=== PATIENT | female | born 1955 | race Caucasian/White ===

== ENCOUNTER 2019-08-29 17:26 | Emergency (ER) | payer SELFPAY ==
[~2019-08-29] VITALS: Ht 167.6 cm; Wt 86.2 kg
--- NOTE | 2019-08-29 17:38 | NUR ---
BIBA 89 "mechanical fall in grocery store-tripped and fell down hit eye socket/R hand and left knee" PT IS AAOX4, NOT IN RESPIRATORY DISTRESS, HOOKED TO MONITOR, KEPT RESTED AND COMFORTABLE, WILL CONTINUE TO MONITOR.
--- NOTE | 2019-08-29 18:03 | NUR ---
SEEN AND EXAMINED BY SMOOTH MATTHEW
[2019-08-29] MEDS ORDERED: ACETAMINOPHEN 325 MG TABLET ONE (18:06)
[2019-08-29] MEDS: ACETAMINOPHEN 325 MG TABLET PO ONE (18:07)
--- NOTE | 2019-08-29 18:10 | NUR ---
PT IS WHEELED TO [place] VIA [employer] [facility].
--- NOTE | 2019-08-29 20:16 | NUR ---
Patient discharged to home in stable condition. Written and verbal after care instructions given. Patient verbalizes understanding of instruction.
[2019-08-29 20:17] VITALS: BP 133/71
== END 2019-08-29 20:25 | disposition home or self-care (01) ==
LOC: ER 17:29
DX: S01.111A Laceration without foreign body of right eyelid and periocular area, initial encounter (principal); S86.811A Strain of other muscle(s) and tendon(s) at lower leg level, right leg, initial encounter; S63.592A Other specified sprain of left wrist, initial encounter; I10 Essential (primary) hypertension; Z90.89 Acquired absence of other organs; Z90.710 Acquired absence of both cervix and uterus; Z98.890 Other specified postprocedural states; Z88.5 Allergy status to narcotic agent; W01.198A Fall on same level from slipping, tripping and stumbling with subsequent striking against other object, initial encounter; Y93.89 Activity, other specified; Y92.481 Parking lot as the place of occurrence of the external cause; Y99.8 Other external cause status
CPT/HCPCS: 70450-TC; 70486-TC; 73110; 73564-TC